=== PATIENT | female | born 1985 | race Caucasian/White ===

== ENCOUNTER 2017-09-13 06:15 | Emergency (ER) | payer BC ==
[~2017-09-13] VITALS: Ht 149.9 cm; Wt 50.0 kg
[2017-09-13 06:32] VITALS: BP 98/54
[2017-09-13] MEDS ORDERED: ACETAMINOPHEN 325 MG TABLET PO ONE (07:00)
[2017-09-13] MEDS ORDERED: ONDANSETRON ODT 4 MG PO ONE (07:00)
[2017-09-13] MEDS ORDERED: ACETAMINOPHEN 325 MG TABLET ONE (07:31)
[2017-09-13] MEDS ORDERED: ONDANSETRON ODT 4 MG ONE (07:31)
[2017-09-13 07:55] LABS: ALBUMIN 3.9 g/dL (3.4-5.0); ANION GAP 9 mmol/L (5-15); CALCIUM 8.7 mg/dL (8.5-10.1); CHLORIDE 106 mmol/L (98-107)
[2017-09-13 08:27] LABS: CULTURE INDICATED? YES; MICROSCOPIC INDICATED
[2017-09-13 08:31] LABS: BASOPHILS # (AUTO) 0.04 x10^3/uL (0-0.1); BASOPHILS % (AUTO) 0 % (0-1); EOSINOPHILS # (AUTO) 0.31 x10^3/uL (0-0.4); EOSINOPHILS % (AUTO) 3 % (1-7); LYMPHOCYTES # (AUTO) 2.06 x10^3/uL (1-3.4); LYMPHOCYTES % (AUTO) 20 % (22-44); MD NO; MEAN CORPUSCULAR HEMOGLOBIN 33.3 pg (27.0-34.8); MEAN CORPUSCULAR VOLUME 97.9 fL (80-100); MEAN PLATELET VOLUME 8.9 fL (7.4-10.4); MONOCYTES # (AUTO) 0.84 x10^3/uL (0.2-0.8); MONOCYTES % (AUTO) 8 % (2-9); NEUTROPHILS # (AUTO) 6.91 x10^3/uL (1.8-6.8); NEUTROPHILS % (AUTO) 68 % (42-75); PLATELET COUNT 236 x10^3/uL (130-400); RED BLOOD COUNT 3.93 x10^6/uL (3.82-5.3); RED CELL DISTRIBUTION WIDTH 11.6 % (9.6-15.2)
[2017-09-13 09:31] LABS: MICROSCOPIC NOT IND
[2017-09-13 09:34] LABS: CULTURE INDICATED? NO
== END 2017-09-13 10:29 | disposition home or self-care (01) ==
LOC: ED 08:52
DX: O26.891 Other specified pregnancy related conditions, first trimester (principal); Z3A.08 8 weeks gestation of pregnancy; R10.33 Periumbilical pain
CPT/HCPCS: 36415; 76801; 80048; 81001; 81003; 82040; 84702; 85025; 87086; 99285; Q0162